=== PATIENT | male | born 1945 | race Caucasian/White ===

== ENCOUNTER 2022-08-07 11:38 | Outpatient (CLI) | payer MEDICARE, BC, SELFPAY ==
[2022-08-07 13:21] LABS: Basophils Absolute Auto 0.01 K/uL (0.00-0.30); Basophils Percent Auto 0.2 % (0.0-3.0); Eosinophils Absolute Auto 0.12 K/uL (0.00-0.50); Eosinophils Percent Auto 2.2 % (0.0-7.0); Hematocrit 39.1 % (37.0-53.0); Hemoglobin* 13.2 gm/dL (13.5-17.5); Lymphocytes Absolute Auto 1.19 K/uL (0.90-2.90); Lymphocytes Percent Auto 22.2 % (20-44); Mean Corpuscular HGB Conc 34 gm/dL (32-36); Mean Corpuscular Hemoglobin 31 pg (26-34); Mean Corpuscular Volume 91 fL (80-100); Neutrophils Absolute Auto 3.23 K/uL (1.7-7.0); Neutrophils Percent Auto 60.4 % (42.0-72.0); Platelet Count* 183 K/uL (140-440); White Blood Count* 5.35 K/uL (4.50-11.00)
[2022-08-07 13:27] LABS: Slide Review Reflex No
[2022-08-07 14:20] LABS: Chloride* 101 mmol/L (96-114); Potassium* 4.2 mmol/L (3.6-5.1); Sodium* 139 mmol/L (135-149)
[2022-08-07 14:22] LABS: Cholesterol* 145 mg/dL (90-199); Creatinine* 0.9 mg/dL (0.5-1.5); Estimated Glomerular Filt Rate 88 ml/min
[2022-08-07 14:23] LABS: Alanine Aminotransferase* 17 U/L (4-50); Blood Urea Nitrogen* 25 mg/dL (7-30); Calcium* 9.4 mg/dL (8.4-10.6); Carbon Dioxide* 31 mmol/L (20-32); Glucose* 90 mg/dL (60-115); HDL Cholesterol* 42 mg/dL (>=40); LDL Cholesterol Calculated 69 mg/dL (<100); Triglycerides* 171 mg/dL (40-149)
== END 2022-08-07 11:39 | disposition home or self-care (01) ==
PROVIDERS: PCP Family Medicine; Visit Provider Family Medicine
DX: Z00.00 Encounter for general adult medical examination without abnormal findings (principal); E78.5 Hyperlipidemia, unspecified; I10 Essential (primary) hypertension
CPT/HCPCS: 80048; 80061; 84460; 85025

== ENCOUNTER 2023-04-29 12:23 | Outpatient (CLI) | payer MEDICARE, BC, SELFPAY | END 2023-04-29 12:24 | disposition home or self-care (01) | PROVIDERS: PCP Family Medicine; Visit Provider Family Medicine | DX: E78.2 Mixed hyperlipidemia (principal); I10 Essential (primary) hypertension; R53.83 Other fatigue; Z12.5 Encounter for screening for malignant neoplasm of prostate | CPT/HCPCS: 80048; 80061; 84153; 84443; 84460; 85025 ==

== ENCOUNTER 2024-04-26 08:27 | Outpatient (CLI) | payer MEDICARE, BC, SELFPAY ==
--- OUTSIDE RECORDS SUMMARY | 2024-04-26 08:30 | XMS_ITS | Clinical Summary ---
Author Organization [employer] [facility] Address [place], [place] [address] Care Team Providers Care Water Pollution Control Technician Name Role Phone Albert Olea MD Primary Care Provider Allergies No known active allergies Medications Medication Sig Dispensed Refills Start Date End Date Status multivitamin (MVI) tablet Take 1 tablet by mouth once daily. 0 09/18/2013 Active cholecalciferol (VITAMIN D) 1,000 unit tablet Take 1 tablet by mouth once daily. 0 09/18/2013 Active chlorthalidone (HYGROTON) 25 mg tabletIndications:HTN (hypertension) Take 1 Tablet (25 mg) by mouth every morning. 90 Tablet 3 12/10/2021 Active atorvastatin (LIPITOR) 40 mg tabletIndications:HTN (hypertension) Take 1 Tablet (40 mg) by mouth at bedtime. 901 Tablet 3 12/10/2021 Active Active Problems Problem Noted Date Diagnosed Date Sinus bradycardia 07/04/2023 Coronary artery disease invo lving [place] coronary artery of [place] heart without angina pectoris 07/04/2023 Hypertension 11/28/2019 Colon polyps 03/18/2014 Nephrolithiasis 12/17/2009 Hydronephrosis of left kidney 12/17/2009 Renal insufficiency 12/17/2009 History of colon polyps Immunizations Name Administration Dates Next Due AMB Influenza, IIV3 (Age >=3 years)(Flu Clinic Only) 05/28/2012 AMB Influenza, IIV4 PF (=>6 mos Flulaval,Fluzone Fluarix)(Flu Clinic Only) 05/31/2014 COVID-19 vaccine (Pfizer-Bio NTech 30mcg/0.3mL) PF, MDV 11/21/2020,10/31/2020 Influenza, High-dose Inactivated 05/19/2018,07/03,06/07/2015 Influenza, High-dose Quadriv alent Inactivated 05/21/2021 Influenza, IIV3 (Age >=3 years) 06/08/2013 Influenza, Inactivated AIIV4 (Age 65+ Years) Preserv Free 05/26/2020 Influenza, Inactivated IIV3 (Age 65+ Years) Preserv Free 05/25/2019 Pneumococcal Poly,23-Valent (Pneumovax) 03/24/20 12 Pneumococcal conj 13-Valent (Prevnar 13) 016 Td (Age >=7 Years) 01/03/2004 Tdap 09/09/2013 Zoster (Shingrix-RZV, recombinant) 05/25/2019, Zoster (Zostavax-ZVL, live) 04/30/2012 Family History Medical History Relation Name Comments Seizures Brother 1 Seizures Brother 2 COPD Brother 3 No Known Problems Brother 4 Alcoholism Father Unknown Mother No Known Problems Sister 1 No Known Problems Sister 2 No Known Problems Sister 3 No Known Problems Sister 4 Relation Name Status Comments Brother 1 Brother 2 Brother 3 Alive Brother 4 Alive Father Mother Sister 1 Alive Sister 2 Alive Sister 3 Alive Sister 4 Alive Social History Tobacco Use Types Packs/Day Years Used Date Smoking Tobacco: Former Cigarettes 1.5 60 Smokeless Tobacco: Never Tobacco Cessation:Counseling Given: No Alcohol Use Standard Drinks/Week Comments No 0 (1 standard drink = 0.6 oz pur e alcohol) PHQ-2 Answer Date Recorded PHQ-2 TOTAL SCORE 0 12/10/2021 Social Connections Answer Date Recorded Frequency of Communication with Friends and Fami ly Not on file 09/01/2021 Financial Resource Strain Answer Date R ecorded Difficulty of Paying Living Expenses Not on file 09/01/2021 Difficulty of Paying Living Expenses Not on file 09/01/2021 Sex and Gender Information Value Date Recorded Sex Assigned at Not on file Gender Identity Not on file Sexual Orientation Not on file Obstetrics History Last Filed Vital Signs Vital Sign Reading Time Taken Comments Blood Pressure 132/70 03/18/2022 10:53 AM CDT Pulse 60 03/18/2022 10:53 AM CDT Temperature 36.8 ??C (98.2 ??F) 12/08/2019 1:38 AM CD T Respiratory Rate 20 01/16/2021 2:34 PM CDT Oxygen Saturation 94% 12/08/2019 1:38 AM CDT Inhaled Oxygen Concentration - - Weight 99.3 kg (219 lb) 03/18/2022 10:53 AM CDT Height 187.3 cm (6' 1.75) 03/18/2022 10:53 AM C DT Body Mass Index 28.31 03/18/2022 10:53 AM CDT Plan of Treatment Health Maintenance Due Date Last Done Comments Depression screening for age 12+ 12/10/2022 12/10/2021, 11/06/2020, 10/05/2019, Additional history exists Medicare Wellness for age 65+ 12/11/2022, 11/06/2020, 10/05/2019, Additional history exists BMI (ht and wt on same day) for age 18+ 03/18/2023 03/18/2022, 12/10/2021, 07/03/2021, Additional history exists COVID-19 vaccine series ( season) 2023 08/19/2022, 03/14/2022, 05/30/2021, Additional history exists Tetanus booster 09/09/2023 09/09/2013, 01/03/2004 Influenza for age 65+ 05/02/2024 05/21/2021 , 05/26/2020, 05/25/2019, Additional history exists Tdap Completed 09/09/2013 Pneumococcal series for age 65+ Completed 6, 03/24/2012 Zoster (shingles) series for age 50+ Completed 05/25/2019, 03/26/2019, 04/30/2012 Hepatitis C screening for ag e 18-79 Completed 11/06/2020 Procedures Procedure Name Priority Date/Time Associated Diagnosis Comments ANTI HCV Routine 11/06/2020 12:52 PM TRUCK MECHANIC APPRENTICE Encounter for hepatitis C screening test for low risk patient from Last 3 Months or Most Recently Relevant to Health Maintenance Results * ANTI HCV (11/06/2020 12:52 PM TRUCK MECHANIC APPRENTICE) HEPATITIS C ANTIBODY Non-React tereza Non-React tereza 11/06/2020 9:45 PM TRUCK MECHANIC APPRENTICE [facility] Comment:Antibodies to HCV no t detected; does not exclude the possibility of exposure to HCV. Blood BLOOD SPECIMEN / Unknown Venipuncture / Unknown 11/06/2020 12:52 PM TRUCK MECHANIC APPRENTICE 11/06/2020 12:55 PM TRUCK MECHANIC APPRENTICE Albert Olea MD SEND OUTS [facility] [address] [place] [address], [place] from Last 3 Months or Most Recently Relevant to Health Maintenance Insurance Payer Benefit Plan / Group Subscriber ID Effective Dates Phone Address Type [employer] TARIQ SERRANO [id number]/01/2020-[place] pepe [place] [address] [address] [place] [address] MEDICARE PART A - HB USE ONLY MEDICARE PART A HB ONLY [id number] 10/02/2009-Presen t ATTN: CLAIMS [address] [place] [address] MEDICARE PART B - HB USE ONLY MEDICARE PART B HB ONLY [id number] 10/02/2009-Presen t ATTN: CLAIMS [address] [place] [address] MEDICARE PART B - HB USE ONLY MEDICARE PART B HB ONLY [id number] 10/02/2009-Presen t ATTN: CLAIMS [address] [place] [address] MEDICARE PART A - HB USE ONLY MEDICARE PART A HB ONLY [id number] 10/02/2009-Presen t ATTN: CLAIMS [address] [place] [address] BLUE CROSS MR BLUE CROSS IONE BLUE MR PB ONLY [id number] 09/01/2016-Presen t [address] [address] [place] [address] BLUE CROSS BLUE CROSS IONE BLUE HB ONLY [id number] 09/01/2016-Presen t [address] [address] [place] [address] BLUE CROSS MR MR BC IONE [id number] 09/01/2014-P resen t [address] [place] [address] BLUE CROSS BLUE CROSS IONE BLUE HB ONLY [id number] 09/01/2016-Bharati loya [address] [address] [place] [address] Advance Directives Documents on File Type Date Recorded Patient Goal Umpire Expl anation Healthcare Directive 04/22/2019 9:34 AM scan 04/22/2019 * Full Code (Latest Code Status on File) Date Activated Date Inactivated Comments 12/17/2009 1:20 AM 12/17/2009 4:35 PM Care Teams Water Pollution Control Technician Relationship Specialty Start Date End Date Albert Olea MD [address] [facility] [place] [id number] PCP - General 05/14/19
== END 2024-04-26 08:28 | disposition home or self-care (01) ==
PROVIDERS: PCP Family Medicine; Visit Provider Family Medicine
DX: I10 Essential (primary) hypertension (principal); E78.2 Mixed hyperlipidemia; R42 Dizziness and giddiness
CPT/HCPCS: 80048; 80061; 84460; 85025

== ENCOUNTER 2024-06-21 08:58 | Outpatient (CLI) | payer MEDICARE, BC, SELFPAY | END 2024-06-21 08:59 | disposition home or self-care (01) | PROVIDERS: PCP Family Medicine; Visit Provider Internal Medicine Cardiovascular Disease | DX: I45.9 Conduction disorder, unspecified (principal); I51.7 Cardiomegaly | CPT/HCPCS: 93306 ==

== ENCOUNTER 2024-11-18 10:07 | Outpatient (CLI) | payer MEDICARE, BC, SELFPAY | END 2024-11-18 10:08 | disposition home or self-care (01) | PROVIDERS: PCP Family Medicine; Visit Provider Family Medicine | DX: E78.2 Mixed hyperlipidemia (principal); I10 Essential (primary) hypertension | CPT/HCPCS: 80048; 80061; 84460; 85025 ==

== ENCOUNTER 2025-03-10 06:53 | Outpatient (CLI) | payer MEDICARE, BC, SELFPAY ==
--- NOTE | 2025-03-10 08:08 | P.ANES_ITS ---
Anesthesia Charges Start Date/Time Anesthesia Start Date: 03/10/25 Anesthesia Start Time: 07:45 Stop Date/Time Anesthesia Stop Date: 03/10/25 Anesthesia Stop Time: 08:03 Summary Extremes of Age - Over 70 or under 1: CLOTHER IN Coding CPT Codes CPT Codes: ANES UPR GI NDSC PX NOS - 93344 ([id number]) P3 - PATIENT W/SEVERE SYS DISEASE, QK - PIN ATTACHER 2-4 CNCRNT ANES PROC, QX - CLOTHER IN SVC W/ MD MED DIRECTION Additional Codes: Summary - Extremes of Age - Over 70 or under 1: CLOTHER IN ([id number])
--- NOTE | 2025-03-10 08:08 | W.ANESCHARGE ---
Anesthesia Charges Start Date/Time Anesthesia Start Date: 03/10/25 Anesthesia Start Time: 07:45 Stop Date/Time Anesthesia Stop Date: 03/10/25 Anesthesia Stop Time: 08:03 Summary Extremes of Age - Over 70 or under 1: PARI MUTUEL TICKET SELLER Coding CPT Codes CPT Codes: ANES UPR GI NDSC PX NOS - 26697 ([id number]) P3 - PATIENT W/SEVERE SYS DISEASE, QK - LOSS PREVENTION CONSULTANT 2-4 CNCRNT ANES PROC, QX - PARI MUTUEL TICKET SELLER SVC W/ MD MED DIRECTION Additional Codes: Summary - Extremes of Age - Over 70 or under 1: PARI MUTUEL TICKET SELLER ([id number])
--- NOTE | 2025-03-10 08:11 | W.ANESCHARGE ---
Anesthesia Charges Start Date/Time Anesthesia Start Date: 03/10/25 Anesthesia Start Time: 07:45 Stop Date/Time Anesthesia Stop Date: 03/10/25 Anesthesia Stop Time: 08:03 Summary Extremes of Age - Over 70 or under 1: MDA Coding CPT Codes CPT Codes: ANES UPR GI NDSC PX NOS - 08489 ([id number]) QK - SCIENTIFIC DIRECTOR 2-4 CNCRNT ANES PROC, QX - GERIATRIC NURSING ASSISTANT SVC W/ MD MED DIRECTION, P3 - PATIENT W/SEVERE SYS DISEASE Additional Codes: Summary - Extremes of Age - Over 70 or under 1: MDA ([id number])
== END 2025-03-10 06:54 | disposition home or self-care (01) ==
LOC: OP CLINIC 06:53
PROVIDERS: PCP Family Medicine; Visit Provider Surgery
DX: R13.10 Dysphagia, unspecified (principal); K21.9 Gastro-esophageal reflux disease without esophagitis; K31.89 Other diseases of stomach and duodenum
CPT/HCPCS: 00731; 43239; 88305; 99100; J2704; J3490

== ENCOUNTER 2025-03-31 07:40 | Outpatient (CLI) | payer MEDICARE, BC, SELFPAY | END 2025-03-31 07:41 | disposition home or self-care (01) | LOC: NFLDREF 04-07 03:28 | PROVIDERS: PCP Family Medicine; Referring Provider Family Medicine; Visit Provider Family Medicine | DX: E78.2 Mixed hyperlipidemia (principal); I10 Essential (primary) hypertension | CPT/HCPCS: 80048; 80061; 84460 ==

== ENCOUNTER 2025-06-18 08:37 | Emergency (ER) | payer MEDICARE, BC, SELFPAY ==
--- OUTSIDE RECORDS SUMMARY | 2025-06-18 08:40 | XMS_ITS | Clinical Summary ---
Author Organization [employer] [facility] Address Formerly [facility] [place] [address] Care Team Providers Care Clerical Adjuster Name Role Phone Grover Quijano MD Primary Care Provider + Allergies No known active allergies Medications omeprazole (PRILOSEC) 40 mg Delayed-Release capsule Take 1 Capsule by mouth once daily. 12/21/2024 Active amLODIPine (NORVASC) 5 mg tabletIndicatio ns:HTN (hypertension) Take 1 Tablet (5 mg) by mouth once daily. 90 Tablet 3 03/16/2025 Active atorvastatin (LIPITOR) 40 mg tabletIndicatio ns:HTN (hypertension) Take 1 Tablet (40 mg) by mouth at bedtime. 90 Tablet 3 04/12/2025 Active amoxicillin-cla vulanate (AUGMENTIN) 875-125 mg tabletIndicatio ns:Cat bite, initial encounter Take 1 Tablet by mouth two times daily with meals for 7 days. 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 [address] [place] [address] Cat bite, initial encounter (Primary Dx); Cellulitis, unspecified cellulitis site Discharge Disposition: Home Self Care 06/05/2025 Travel 04/12/2025 Telephone [facility] [address] [facility] [address] [place] [address] Grover Herrera MD Results 04/07/2025 8:15 AM CDT Orders Only [facility] [address] [place] [address] Lab, [facility] <No scans attached> 04/07/2025 Travel from Last 3 Months Immunizations Immunization Administration Dates Next Due AMB Influenza, IIV3 (Age >=3 years)(Flu Clinic Only) 05/28/2012 AMB Influenza, IIV4 PF (=>6 mos Flulaval,Fluzone Fluarix)(Flu Clinic Only) 05/31/2014 COVID-19 vaccine (Calligo NTViblio 30mcg/0.3mL) PF, MDV 11/21/2020,10/31/2020 Influenza, High-dose Inactivated 05/19/2018,07/03,06/07/2015 Influenza, High-dose Quadriv alent Inactivated 05/21/2021 Influenza, IIV3 (Age >=3 years) 06/08/2013 Influenza, Inactivated AIIV4 (Age 65+ Years) Preserv Free 05/26/2020 Influenza, Inactivated IIV3 (Age 65+ Years) Preserv Free 05/25/2019 Pneumococcal Poly,23-Valent (Pneumovax) 03/24/20 12 Pneumococcal conj 13-Valent (Prevnar 13) 016 Td (Age >=7 Years) 01/03/2004 Tdap 06/05/2025,09/09/2013 Zoster (Shingrix-RZV, recombinant) 05/25/2019, Zoster (Zostavax-ZVL, live) [...] Used Date Smoking Tobacco: Former Cigarettes 1.5 42 1 178 - 2000 Smokeless Tobacco: Never Tobacco Cessation:Counseling Given: Yes Alcohol Use Standard Drinks/Week Comments No 0 (1 standard drink = 0.6 oz pur e alcohol) quit in 1982 PHQ-2 Answer Date Recorded PHQ-2 TOTAL SCORE 0 12/10/2021 Financial Resource Strain Answer Date R ecorded Difficulty of Paying Living Expenses Not on file 09/01/2021 Difficulty of Paying Living Expenses Not on file 09/01/2021 Interpersonal Safety Answer Date Record ed Are you being hit, kicked, p ushed or yelled at (see row info)? 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 Gender Identity Male 06/05/2025 12:09 PM CDT Sexual Orientation Straight 06/05/2025 12 :09 PM CDT Obstetrics History Last Filed Vital Signs Vital Sign Reading Time Taken Comments Blood Pressure 145/83 06/05/2025 12:08 PM CDT Pulse 73 06/05/2025 12:08 PM CDT Temperature 36.6 C (97.9 F) 06/05/2025 12:08 PM CDT Respiratory Rate 16 06/05/2025 12:08 PM CDT Oxygen Saturation 95% 06/05/2025 12:08 PM CDT Inhaled Oxygen Concentration - - Weight 98 kg (216 lb) 06/05/2025 12:08 PM CDT Height 190.5 cm (6' 3) 06/05/2025 12:08 PM CDT Body Mass Index 27 06/05/2025 12:08 PM CDT Plan of Treatment Upcoming Encounters Date Type Department Care Team (Late st Contact Info) Description 10/06/2025 Cardiac Device Check [facility] [phone] Health Maintenance Due Date Last Done Comments RSV vaccine for adults or (1 - 1-dose 75+ series) 2019 Depression screening for age 12+ 12/10/2022 12/10/2021, 11/06/2020, 10/05/2019, Additional history exists Medicare Wellness for age 65+ 12/11/2022 12/10/2021, 11/06/2020, 10/05/2019, Additional history exists Influenza Vaccine (#1) 2025 , 05/25/2019, 05/19/2018, Additional history exists BMI (ht and wt on same day) for age 18+ 08/17/2025 08/17/2024, 03/18/2022, 12/10/2021, Additional history exists Tetanus booster 06/05/2035 06/05/2025, /0 05/2014, 01/03/2004 Pneumococcal series for age 50+ Completed 07/23/2016, 03/24/2012 Zoster (shingles) series for age 50+ Completed 05/25/2019, 03/26/2019, 04/30/2012 COVID-19 vaccine series Completed 06/04/20, 05/28/2024, 08/19/2022, Additional history exists Hepatitis B series for 19+ Aged Out N o longer eligible based on patient's age to complete this topic Procedures Procedure Name Priority Date/Time Associated Diagnosis Comments XR HAND 3 VIEWS LEFT STAT 06/05/2025 12:40 PM CDT BASIC METABOLIC PANEL Routine 04/07/2025 8:16 AM CDT HTN (hypertension) LIPID PANEL W REFLEX MEASURED LDL Routine 04/07/2025 8:16 AM CDT Pure hypercholesterolemia from Last 3 Months Results * XR HAND 3 VIEWS LEFT (06/05/2025 12:40 PM CDT) Anatomical Region Laterality Modality HANDS, HAND L Digital Radiogra phy 06/05/2025 12:5 1 PM CDT Narrative 06/05/2025 12:51 PM CDT For Patients: As a result of the Cures Act, medical imaging exams and procedure reports are released immediately into your electronic medical record. You may view this report before your referring provider. If you have questions, please contact your health care provider. Indication: Swelling cat bite - eval retained teeth Technique: Three views of the left hand Comparison: Left hand radiograph on March 18, 2022 Findings/Impression: No acute fracture or malalignment. 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 No suspicious osseous lesions. Moderate soft tissue edema throughout the hand and wrist, predominantly along the dorsal aspect of the hand. No appreciable subcutaneous gas or radiopaque foreign bodies. Dictated by Jhonny Fisher MD @ 06/05/2025 12:51:02 PM (Electronically Signed) Procedure Note Jhonny Fisher MD - 06/05/2025 For Patients: As a result of the Cures Act, medical imagingexams and procedure reports are released immediately into your electronicmedical record. You may view this report before your referring provider.If you have questions, please contact your health care provider. Indication: Swelling cat bite - eval retained teeth Technique: Three views of the left hand Comparison: Left hand radiograph on March 18, 2022 Findings/Impression: No acute fracture or malalignment. Redemonstration of severe osteoarthritic degenerative changes of the 3rddistal interphalangeal joint. No suspicious osseous lesions. Moderate soft tissue edema throughout the hand and wrist, predominantlyalong the dorsal aspect of the hand. No appreciable subcutaneous gas orradiopaque foreign bodies. Dictated by Jhonny Fisher MD @ 06/05/2025 12:51:02 PM (Electronically Signed) us Evy Ward MD GENERAL IMAGING Final Res ult * LIPID PANEL W REFLEX MEASURED LDL ([id number]) (04/07/2025 8:16 AM CDT) CHOLESTEROL, TOTAL 153 <200 mg/dL [facility] HDL CHOLESTEROL 43 > OR = 40 mg/dL [facility] TRIGLYCERIDES 98 <150 mg/dL [facility] LDL-CHOLESTEROL 91 mg/dL (calc) [facility] Comment: Reference range: <100 Desirable range <100 mg/dL for primary prevention; <70 mg/dL for patients with CHD or diabetic patients with > or = 2 CHD risk factors. LDL-C is now calculated using the Vasiliy calculation, which is a validated novel method providing better accuracy than the Friedewald equation in the estimation of LDL-C. Sina CAST et al. TRAMAINE. 2013;310(19): 2928-4063 (http://education.[employer]/faq/OFE128) CHOL/HDLC RATIO 3.6 <5.0 (calc) [facility] NON HDL CHOLESTEROL 110 <130 mg/dL (calc) [facility] Comment: For patients with diabetes plus 1 major ASCVD risk factor, treating to a non-HDL-C goal of <100 mg/dL (LDL-C of <70 mg/dL) is considered a therapeutic option. Blood BLOOD SPECIMEN / Unknown 04/07/2025 8:16 AM CDT 04/07/2025 8:17 AM CDT Narrative [facility] - 04/08/2025 4:46 AM CDT FASTING:YES FASTING: YES us Grover Herrera MD CHEMISTRY Final Result [email or web address] [address] [place] [address], [facility] [address] [place] [address] * (ABNORMAL) BASIC METABOLIC PANEL (BMP) [65903.0] (04/07/2025 8:16 AM CDT) GLUCOSE 139(H) 65 - 99 mg/dL [facility] Comment: Fasting reference interval For someone without known diabetes, a glucose value >125 mg/dL indicates that they may have diabetes and this should be confirmed with a follow-up test. UREA NITROGEN (BUN) 14 7 - 25 mg/dL [facility] CREATININE 0.97 0.70 - 1.22 mg/dL [facility] EGFR 79 > OR = 60 mL/min/1. 73m2 [facility] BUN/CREATININE RATIO SEE NOTE: 6 - 22 (calc) [facility] Comment: Not Reported: BUN and Creatinine are within reference range. SODIUM 137 135 - 146 mmol/L [facility] POTASSIUM 4.3 3.5 - 5.3 mmol/L [facility] CHLORIDE 102 98 - 110 mmol/L [facility] CARBON DIOXIDE 26 20 - 32 mmol/L [facility] ELECTROLYTE BALANCE 9 7 - 17 mmol/L (calc) [facility] CALCIUM 9.3 8.6 - 10.3 mg/dL [facility] Blood BLOOD SPECIMEN / Unknown 04/07/2025 8:16 AM CDT 04/07/2025 8:17 AM CDT Narrative [facility] - 04/08/2025 4:46 AM CDT FASTING:YES FASTING: YES Grover Herrera MD CHEMISTRY Final Result [facility] [address] [place] [address], [place] [phone] [facility] [address] [place] [address] from Last 3 Months Insurance [facility] [place] [id number] MEDICARE PART B HB ONLY BLUE [place]OSS [place] BLUE HB ONLY BLUE [place]OSS [place] BLUE MR PB ONLY MEDICARE PART A HB ONLY [place] MEDICARE PART B HB ONLY [facility] MEDICARE PART A HB ONLY [place]UE [place]OSS [place] BLUE HB ONLY Advance Directives Documents on File Type Date Recorded Patient Forestry Contractor Expl anation Healthcare Directive 04/22/2019 9:34 AM scan 04/22/2019 * Full Code (Latest Code Status on File) Date Activated Date Inactivated Comments 10/01/2024 2:07 PM 10/01/2024 7:00 PM Question Answer Comments Code Status Discussion: Other * Full Code Date Activated Date Inactivated Comments 12/17/2009 1:20 AM 12/17/2009 4:35 PM Care Teams Clerical Adjuster Relationship Specialty Start Date End Date Grover Quijano MD [address] [place] [address] PCP - General Family Practice 08/17/24
[2025-06-18 08:42] VITALS: BP 152/75; PULSE 67; RESP 18; TEMP 36.9; O2SAT 97; BMI 27.1
--- NOTE | 2025-06-18 09:09 | ED.ANIMALBIT ---
HPI - Animal Bite General Date Seen: 06/18/25 Chief Complaint: Skin/Abscess/Foreign Body Stated Complaint: cat bite left hand Time Seen by Provider: 06/18/25 08:49 Source: patient, family, RN notes reviewed and old records reviewed Mode of arrival: ambulatory Limitations: no limitations History of Present Illness HPI narrative: Patient is a delightful 79-year-old gentleman, who sees Dr. Quijano for primary care, he has done 12 days of Augmentin, and presents here to the emergency room with his family, for evaluation of edema of the left upper extremity, he was bit by a cat, seen in the [place] ER for this. They did want a hospitalize him with IV medications but he declined this. The put him on oral Augmentin which she has been taking faithfully up until today. The swelling has markedly improved, but not completely gone away. He has been wrapping his left upper extremity from the mid forearm all the way to his hand, his fingers are edematous, but the swelling itself is improved. Overall does not have any redness, no fevers no chills, and no pain with movement of his hand. He has no past history of DVTs pulmonary embolism, he is on no anticoagulants. He otherwise feels good with absence of any diarrhea or any complaints from the antibiotics. They did delve into the hole rabies thing, and he is at low risk for rabies, as it is the indoor cat fully immunized MD complaint: animal bite Animal: cat Description of animal: household pet Mechanism: bite and scratch Related Data Patient tetanus UTD: Yes Home Medications ?Medication ?Instructions ?Recorded ?Confirmed atorvastatin 40 mg tablet 20 mg PO QDAY 03/30/25 06/07/25 Previous Rx's ?Medication ?Instructions ?Recorded amlodipine 5 mg tablet 5 mg PO QDAY #90 tabs 06/09/25 omeprazole 40 mg capsule,delayed 40 mg PO QDAY #90 caps 06/09/25 release amoxicillin 875 mg-potassium 1 tab PO BID #10 tabs 06/13/25 clavulanate 125 mg tablet amoxicillin 875 mg-potassium 1 tab PO BID #14 tabs 06/18/25 clavulanate 125 mg tablet Allergies Allergy/AdvReac Type Severity Reaction Status Date / Time No Known Drug Allergies Allergy Verified 06/18/25 08:41 Review of Systems Status of ROS: Reports: 10 or more systems reviewed and unremarkable except as noted in History and below PFSH PFSH Medical History Health care directive on file ?Z78.9 - Other specified health status (ICD-10) Mixed hyperlipidemia ?E78.2 - Mixed hyperlipidemia (ICD-10) Primary hypertension ?I10 - Essential (primary) hypertension (ICD-10) Onychomycosis ?B35.1 - Tinea unguium (ICD-10) Hard of hearing ?H91.90 - Unspecified hearing loss, unspecified ear (ICD-10) GERD (gastroesophageal reflux disease) ?K21.9 - Gastro-esophageal reflux disease without esophagitis (ICD-10) Surgical History History of cardiac pacemaker ?Z95.0 - Presence of cardiac pacemaker (ICD-10) S/P total knee arthroplasty ?Z96.659 - Presence of unspecified artificial knee joint (ICD-10) Family History Daughter Diabetes Social History Narrative: , former smoker, retired What is your current living situation?: I presently have a place to live Problems where you live: no known problems In the past 12 months, utilities in danger of being shut off: no In past 12 months, lack of transportation kept you from medical appts, meetings, work, or getting things needed for daily living: no In the past 12 mos, have been you worried that your food would run out before you had money to buy more?: never true In the past 12 mos, the food you bought just didn't last and you didn't have money to buy more?: never true Smoking Status: Former smoker How often does anyone, including family, friends and others, physically hurt you: never How often does anyone, including family, friends and others, insult or talk down to you: never How often does anyone, including family, friends and others, threaten you with harm: never How often does anyone, including family, friends and others, scream or curse at you: never Exam Narrative: Exam Narrative: On examination the right hand dominant, the wrap is removed, he does have swelling and mild edema more of his fingers, and a little bit slight increase in the size of his left forearm, there is no swelling in his upper arm noted. He has no redness, he has absolutely no pain with any movements. Normal shoulder abduction, flexion extension of his left elbow was normal, supination pronation is normal wrist extension, defense attorney strength, finger extension flexion, is all normal. Where the cat actually bit him on the dorsum of the hand, it is all healed up with absence or redness. He has no lymphadenopathy in his left axilla noted. And no tenderness along any the cords to suggest this is superficial thrombophlebitis. Const: Vital Signs, click to edit/add: Vital Signs - 24 hr 06/18/25 08:42 Temperature 98.5 F Pulse Rate [Pulse Oximeter] 67 Respiratory Rate 18 Blood Pressure [Ri ght Upper Arm] 152/75 H Pulse Oximetry 97 Oxygen Delivery Me thod Room Air Course Vital Signs Vital signs: Initial Vital Signs Temperature 98.5 F 06/18/25 08:42 Temperature Source Temporal Artery Scan 06/18/25 08:42 Pulse Rate 67 06/18/25 08:42 Respiratory Rate 18 06/18/25 08:42 Blood Pressure 152/75 H 06/18/25 08:42 Blood Pressure Mean 100 06/18/25 08:42 Pulse Oximetry 97 06/18/25 08:42 Oxygen Delivery Method Room Air 06/18/25 08:42 Vital Signs Temperature 98.5 F 06/18/25 08:42 Pulse Rate 67 06/18/25 08:42 Respiratory Rate 18 06/18/25 08:42 Blood Pressure 152/75 H 06/18/25 08:42 Pulse Oximetry 97 06/18/25 08:42 Oxygen Delivery Method Room Air 06/18/25 08:42 Temperature 98.5 F 06/18/25 08:42 Pulse Rate 67 06/18/25 08:42 Respiratory Rate 18 06/18/25 08:42 Blood Pressure 152/75 H 06/18/25 08:42 Pulse Oximetry 97 06/18/25 08:42 Oxygen Delivery Method Room Air 06/18/25 08:42 MDM - Animal Bite MDM Narrative Medical decision making narrative: During this evaluation I considered multiple diagnosis includes cellulitis, tenosynovitis, DVT, edema secondary to of post infection, rabies exposure, he was given tetanus prophylaxis with immunization in [place]. I think it be reasonable let him go home, we sometimes use extended antibiotics here, as there is a bit of a anti-inflammatory effect with this, elevation would be helpful in removing the wrap at this point. I think another week of antibiotics, and I prescribe these for him. We went over signs and symptoms of worsening, I do not think this is a DVT, given the fact swelling is actually improving according to the family, and not worsening. He has no further stick matted also of chest pain shortness of breath this is to associate this with a pulmonary embolism. I explained to them this could take up to 4-6 weeks to improve. And sometimes even some scarring in lymphedema can be longer. Be helpful to see Dr. Quijano in 1-2 weeks, back to the ER signs and symptoms of worsening. I did review his visit on the [facility] chart, in [place]. Differential Diagnosis Differential diagnosis: Likely bite by animal, cat bite and rabies contact Medical Records Attestation: I reviewed the patient's medical records. Discharge Plan Discharge Clinical Impression: Edema due to infection Patient Disposition: Home w/ Parent or Adult Condition: Improved Instructions: Edema (ED) Additional Instructions: Home, rest, I would avoid wrapping at at this point, go about your normal activities if you can not keep it elevated I would be the best, this usually takes in 4-6 weeks to totally resolve, but I think your results can be good. Things to watch out for include increasing swelling, increasing redness, increasing pain in the hand with either gripping or extending her fingers. Fevers chills obviously also. Follow-up with Dr. Quijano in 1-2 weeks, sometimes physical therapy is also helpful for this. No evidence currently of a blood clot either. But if the worsening does get worse, extending up into her arm, and I would be considering this also. Take 7 were days of the medication. Activity Level: Light activity Prescriptions: New amoxicillin-pot clavulanate 875-125 mg tablet 1 tab PO BID Qty: 14 0RF No Action atorvastatin 40 mg tablet 20 mg PO QDAY amoxicillin-pot clavulanate 875-125 mg tablet 1 tab PO BID Qty: 10 0RF omeprazole 40 mg capsule,delayed release(DR/EC) 40 mg PO QDAY Qty: 90 1RF amlodipine 5 mg tablet 5 mg PO QDAY Qty: 90 1RF Follow Up/Referrals: Grover Quijano MD [Primary Care Provider, Family Practice] Stand Alone Forms: Fast Orientation Info Instructions
== END 2025-06-18 09:41 | disposition home or self-care (01) ==
LOC: ED 09:20
PROVIDERS: Emergency Provider Family Medicine; PCP Family Medicine
DX: S61.452D Open bite of left hand, subsequent encounter (principal); L08.9 Local infection of the skin and subcutaneous tissue, unspecified; W55.01XD Bitten by cat, subsequent encounter
CPT/HCPCS: 99283; 99284